=== PATIENT | male | born 1970 | race Caucasian/White ===

== ENCOUNTER 2020-12-24 17:51 | Emergency (ER) | payer BC, OTHER ==
[~2020-12-24] VITALS: Ht 177.8 cm; Wt 74.8 kg
[2020-12-24] MEDS ORDERED: HYDROCODON-ACE1 EAC7 PO (18:31)
[2020-12-24] MEDS ORDERED: DOXYCYCLINE 10100 MG PO (18:31)
[2020-12-24 19:00] VITALS: BP 119/75
== END 2020-12-24 19:25 | disposition home or self-care (01) ==
LOC: ER 17:51
DX: L03.115 Cellulitis of right lower limb (principal)

== ENCOUNTER 2020-12-26 10:55 | Emergency (ER) | payer BC, OTHER ==
[~2020-12-26] VITALS: Ht 177.8 cm; Wt 74.8 kg
[~2020-12-26 10:55] MED LIST: DOXYCYCLINE 10100 MG PO; HYDROCODON-ACE1 EAC7 PO
[2020-12-26 12:03] VITALS: BP 116/79
== END 2020-12-26 12:05 | disposition home or self-care (01) ==
LOC: ER 10:55
DX: L02.415 Cutaneous abscess of right lower limb (principal); Z86.14 Personal history of Methicillin resistant Staphylococcus aureus infection